=== PATIENT | male | born 1945 | race Caucasian/White ===

== ENCOUNTER → 2018-03-06 | Day surgery (SDC) | payer MEDICARE ==
[~2018-03-06] MED LIST: DEXAMETHASONE SOD PHOS 4 MG/ML VIAL ONE; EPINEPHrine HCL (1:1000) 1 MG/ML VIAL ONE; LACTATED RINGER'S 1000 ML INJ 1,000 ML ONE; MIDAZOLAM HCL 2 MG/2 ML VIAL ONE; MOXIFLOXACIN 0.5% OPHT SOLN 3 ML BTL ONE; ONDANSETRON HCL 4 MG/2 ML VIAL IV PUSH ONE; PHENYLEPHRINE HCL 10% OPTH SOLN 5 ML BTL ONE; PROPOFOL 200 MG/20 ML AMP IV ONE; SODIUM CHLORIDE 0.9% INJ 10 ML ONE; TETRACAINE 0.5% OPTH SOLN 4 ML BTL ONE; TOBRAMYCIN/DEXAMETHASONE OPTH OINT 3.5 GM TUBE ONE; TRIAMCINOLONE ACETONIDE 40 MG/ML VIAL ONE; ceFAZolin INJ 1,000 MG VIAL ONE; prednisoLONE ACETATE 1% OPHT SUSP 5 ML BTL ONE
--- NOTE | 2018-03-15 12:48 | MP ---
cc: Elliott Salinas MD DATE OF OPERATION: 03/06/2018 PREOPERATIVE DIAGNOSIS: Severe epiretinal membrane, metamorphopsia, retinal edema, right eye. POSTOPERATIVE DIAGNOSIS: Severe epiretinal membrane, metamorphopsia, retinal edema, right eye. PROCEDURE PERFORMED: Pars plana vitrectomy, removal of internal limiting membrane/epiretinal membrane, insertion of intravitreal Kenalog, right eye. COMPLICATIONS: None. ESTIMATED BLOOD LOSS: Less than 1 mL. ANESTHESIA: Dr. Kebede, general. INDICATIONS FOR PROCEDURE: This is a delightful patient who presented with worsening and vision in his right eye. The patient was found to have significant epiretinal membrane and desired surgical correction, understanding risks, benefits and alternatives. PROCEDURE NOTE: After full informed consent was obtained, the patient was brought to the operating room and general anesthesia was established, the right eye was prepped and draped in sterile fashion with Betadine in the conjunctival fornix. A 3 port pars plana vitrectomy was established with a self-retaining infusion cannula. Core vitreous was evacuated and vitreous traction relieved. The EIM/ILM complex was highlighted with ICG and removed with alkaline ILM forceps. Scleral depressed examination revealed no untreated retinal holes, tears or detachments. The central macula had mobility and improved contour after membrane removal. Intravitreal Kenalog was instilled. Trocars were removed and sclerotomies closed. Subconjunctival injections of Ancef and dexamethasone were given. Eye was patched with tobramycin ointment. The patient was brought to recovery room in stable condition and continue to followup with [facility] for his postoperative care. MD DIXON Campos/HAYDEN , 08:55 PM , 09:33 PM
== END | disposition home or self-care (01) ==
LOC: ESDC 06:02
PROVIDERS: ATTEND Ophthalmology
DX: H35.371 Puckering of macula, right eye (principal); H53.15 Visual distortions of shape and size; H35.81 Retinal edema
CPT/HCPCS: 00145; 67042; J0171; J0690; J1100; J2250; J2405; J3010; J3301; J7120